=== PATIENT | female | born 1975 | race Caucasian/White ===

== ENCOUNTER → 2018-01-04 | Outpatient (CLI) | payer BC ==
--- NOTE | 2018-01-08 13:07 | RAD ---
DATE: 01/04/2018 EXAM: DIGITAL SCREEN BILAT W/CAD HISTORY: Routine screening COMPARISON: 08/25/2013 This study was interpreted with the benefit of Computerized Aided Detection (CAD). The breast parenchyma is heterogeneously dense, which could reduce sensitivity of mammography. Breast parenchyma level C. FINDINGS: No new or enlarging breast densities are seen. Minimal benign type calcification is present. No suspicious microcalcifications have developed. IMPRESSION: Stable mammograms without evidence of malignancy. BI-RADS CATEGORY: 2 BENIGN FINDING(S) RECOMMENDED FOLLOW-UP: 12M 12 MONTH FOLLOW-UP PQRS compliance statement: Patient information was entered into a reminder system with a target due date for the next mammogram. Mammography is a sensitive method for finding small breast cancers, but it does not detect them all and is not a substitute for careful clinical examination. A negative mammogram does not negate a clinically suspicious finding and should not result in delay in biopsying a clinically suspicious abnormality. "Our facility is accredited by the [employer] Mammography [employer]."
== END | disposition home or self-care (01) ==
LOC: MAMMO 08:23
PROVIDERS: ATTEND Obstetrics & Gynecology
DX: Z12.31 Encounter for screening mammogram for malignant neoplasm of breast (principal)
CPT/HCPCS: 77067

== ENCOUNTER → 2019-03-04 | Outpatient (CLI) | payer BC ==
--- NOTE | 2019-03-07 09:30 | RAD ---
DATE: 03/04/2019 1:05 PM EXAM: MAMMO PHYLLIS SCREENING BILATERAL HISTORY: routine screening evaluation. COMPARISON: Bilateral CC and MLO views of the breasts were performed. Bilateral breast tomosynthesis was performed in CC and MLO projections. This study was interpreted with the benefit of Computerized Aided Detection (CAD). FINDINGS: Breast Density: HETERO The breast parenchyma Is heterogeneously dense, which could reduce sensitivity of mammography. Breast parenchyma level C Benign calcifications are present. The parenchymal pattern appears stable. Subtle left breast macrocalcifications are seen within the superior, lateral left breast for which additional imaging is recommended. No suspicious left breast mass or architectural distortion. No suspicious masses, microcalcifications or architectural distortion is present to suggest malignancy in the right breast. The visualized axillae are unremarkable. IMPRESSION: Left breast indeterminate microcalcifications, findings for which additional imaging is advised. BI-RADS CATEGORY: 0 INCOMPLETE: NEEDS ADDITIONAL IMAGING EVALUATION AND/OR PRIOR MAMMOGRAMS FOR COMPARISON. RECOMMENDED FOLLOW-UP: ADD ADDITIONAL IMAGING. Additional imaging of the left breast is recommended to include spot magnification and tangential views (as these may be skin calcifications) PQRS compliance statement: Patient information was entered into a reminder system with a target due date for the next mammogram. Mammography is a sensitive method for finding small breast cancers, but it does not detect them all and is not a substitute for careful clinical examination. A negative mammogram does not negate a clinically suspicious finding and should not result in delay in biopsying a clinically suspicious abnormality. "Our facility is accredited by the [employer] Mammography [employer]."
== END | disposition home or self-care (01) ==
LOC: MAMMO 12:45
PROVIDERS: ATTEND Obstetrics & Gynecology
DX: Z12.31 Encounter for screening mammogram for malignant neoplasm of breast (principal)
CPT/HCPCS: 77063; 77067

== ENCOUNTER → 2019-03-17 | Outpatient (CLI) | payer BC ==
--- NOTE | 2019-03-17 16:01 | RAD ---
DATE: 03/17/2019 EXAM: DIGITAL DIAGNOSTIC LT HISTORY: Abnormal mammogram COMPARISON: 01/04/2018 and 03/04/2019 mammographic exams This study was interpreted with the benefit of Computerized Aided Detection (CAD). Breast Density: HETERO The breast parenchyma is heterogenously dense, which could reduce sensitivity of mammography. Breast parenchyma level C. FINDINGS: Spot magnification imaging of the left upper breast in the MLO and mediolateral oblique projections were provided. Loosely clustered calcifications are present. No suspicious cluster of calcifications evident. No suspicious interval change compared to the prior exams. IMPRESSION: Benign findings. BI-RADS CATEGORY: 1 NEGATIVE RECOMMENDED FOLLOW-UP: 12M 12 MONTH FOLLOW-UP PQRS compliance statement: Patient information was entered into a reminder system with a target due date in one year for the next mammogram. Mammography is a sensitive method for finding small breast cancers, but it does not detect them all and is not a substitute for careful clinical examination. A negative mammogram does not negate a clinically suspicious finding and should not result in delay in biopsying a clinically suspicious abnormality. "Our facility is accredited by the [employer] Mammography [employer]."
== END | disposition home or self-care (01) ==
LOC: MAMMO 14:46
PROVIDERS: ATTEND Obstetrics & Gynecology
DX: R92.1 Mammographic calcification found on diagnostic imaging of breast (principal)
CPT/HCPCS: 77065

== ENCOUNTER → 2020-03-23 | Outpatient (CLI) | payer BC ==
--- NOTE | 2020-03-23 15:20 | RAD ---
DATE: 03/23/2020 2:10 PM EXAM: MAMMO PHYLLIS SCREENING BILATERAL HISTORY: Screening COMPARISON: 03/04/2019, 01/04/2018. Bilateral CC and MLO views of the breasts were performed. Bilateral breast tomosynthesis was performed in CC and MLO projections. This study was interpreted with the benefit of Computerized Aided Detection (CAD). FINDINGS: Breast Density: HETERO The breast parenchyma Is heterogeneously dense, which could reduce sensitivity of mammography. Breast parenchyma level C Negative left mammogram. Focal asymmetry medial middle third right breast at the approximate 3:00 position 8 cm from the nipple needs additional imaging with spot compression views, full-field lateral view and probable targeted right breast ultrasound. This is best appreciated on tomographic image 37 of the CC series and image 41 of the MLO series in the right breast. IMPRESSION: Right breast focal asymmetry, findings for which additional imaging is advised. BI-RADS CATEGORY: 0 INCOMPLETE: NEEDS ADDITIONAL IMAGING EVALUATION AND/OR PRIOR MAMMOGRAMS FOR COMPARISON. RECOMMENDED FOLLOW-UP: ADD ADDITIONAL IMAGING Additional views are recommended as described. PQRS compliance statement: Patient information was entered into a reminder system with a target due date for the next mammogram. Mammography is a sensitive method for finding small breast cancers, but it does not detect them all and is not a substitute for careful clinical examination. A negative mammogram does not negate a clinically suspicious finding and should not result in delay in biopsying a clinically suspicious abnormality. "Our facility is accredited by the [employer] Mammography [employer]."
== END | disposition home or self-care (01) ==
LOC: MAMMO 14:10
PROVIDERS: ATTEND Obstetrics & Gynecology
DX: Z12.31 Encounter for screening mammogram for malignant neoplasm of breast (principal)
CPT/HCPCS: 77063; 77067

== ENCOUNTER → 2020-04-05 | Outpatient (CLI) | payer BC ==
--- NOTE | 2020-04-05 17:50 | RAD ---
DATE: 04/05/2020 1:13 PM EXAM: DIGITAL DIAGNOSTIC RT, BREAST RIGHT HISTORY: Screening recall for right breast asymmetry COMPARISON: 03/23/2020 and 03/04/2019 screening mammograms TECHNIQUE: Spot compression views of the right breast in the CC and MLO projections as well as a full-field right ML view were obtained. This study was interpreted with the benefit of Computerized Aided Detection (CAD). Targeted ultrasound of the upper inner quadrant right breast was also pursued. FINDINGS: Breast Density: HETERO The breast parenchyma Is heterogeneously dense, which could reduce sensitivity of mammography. Breast parenchyma level C The questioned asymmetry changed configuration in a pattern suggestive of possible overlap of fibroglandular tissue. Targeted ultrasound of the upper inner quadrant right breast did not show a sonographic correlate to the area of mammographic interest. Findings currently favor probably benign island of fibroglandular tissue. IMPRESSION: Probably benign island of tissue in the upper inner right breast. BI-RADS CATEGORY: 3 PROBABLY BENIGN FINDING(S)-SHORT INTERVAL FOLLOW-UP SUGGESTED RECOMMENDED FOLLOW-UP: 6M 6 MONTH FOLLOW-UP six-month follow-up right mammogram with possible targeted right breast ultrasound recommended. PQRS compliance statement: Patient information was entered into a reminder system with a target due date for the next mammogram. Mammography is a sensitive method for finding small breast cancers, but it does not detect them all and is not a substitute for careful clinical examination. A negative mammogram does not negate a clinically suspicious finding and should not result in delay in biopsying a clinically suspicious abnormality. "Our facility is accredited by the [employer] Mammography [employer]."
== END | disposition home or self-care (01) ==
LOC: MAMMO 13:02
PROVIDERS: ATTEND Obstetrics & Gynecology
DX: R92.8 Other abnormal and inconclusive findings on diagnostic imaging of breast (principal)
CPT/HCPCS: 76641; 77065

== ENCOUNTER → 2020-09-29 | Outpatient (CLI) | payer BC ==
--- NOTE | 2020-09-29 13:15 | RAD ---
EXAM: Right breast diagnostic mammogram with tomosynthesis. HISTORY: 45-year-old female presents for follow-up evaluation of asymmetry within the right breast de monstrated on a mammogram dated 04/05/2020. TECHNIQUE: Full-field digital craniocaudal and mediolateral oblique 2D and 3D tomosynthesis images of the right breast are obtained for evaluation. Computer aided detection was applied. COMPARISON: 04/05/2020 and 03/17/2019 BREAST PARENCHYMAL DENSITY: Level C - Heterogeneously dense. FINDINGS: There is no new suspicious mass, microcalcification or region of architectural distortion. There are stable areas of benign asymmetry within the right breast. There are few punctate benign barney cifications. IMPRESSION: BI-RADS Category 2: Benign finding(s). RECOMMENDATION: The patient will be due for bilateral mammography in 6 months according to a previous ly established bilateral mammography interval. If your mammogram demonstrates that you have dense breast tissue, which could hide abnormalities, and if you have other risk factors for breast cancer that have been identified, you might benefit from s upplemental screening tests that may be suggested by your ordering physician. Dense breast tissue, i n and of itself, is a relatively common condition. This information is not provided to cause undue c oncern, but rather to raise your awareness and to promote discussion with your physician regarding th e presence of other risk factors, in addition to dense breast tissue. A report of your mammography re sults will be sent to you and your physician. You should contact your physician if you have any ques tions or concerns regarding this report. Mammography is a sensitive method for finding small breast cancers, but it does not detect them all a nd is not a substitute for careful clinical examination. A negative mammogram does not negate a clin ically suspicious finding and should not result in delay in biopsying a clinically suspicious abnorma lity. PQRS compliance statement - Patient information was entered into a reminder system with a target due date for the next mammogram. "Our facility is accredited by the [employer]amm[employer]." Electronically signed by: Maddi Mcfarland MD (09/29/2020 1:13 PM) [id number]
== END ==
LOC: MAMMO 12:45
PROVIDERS: ATTEND Obstetrics & Gynecology
DX: N64.89 Other specified disorders of breast (principal); R92.1 Mammographic calcification found on diagnostic imaging of breast
CPT/HCPCS: 77065; G0279; 77061

== ENCOUNTER → 2021-05-26 | Outpatient (CLI) | payer BC ==
--- NOTE | 2021-05-26 11:25 | RAD ---
DATE: 05/26/2021 EXAM: MG DIGITAL BILAT DIAGNOSTIC MAMMO WITH PHYLLIS HISTORY: Annual mammogram and six-month follow-up of probably benign islands of fibroglandular tissue in the right breast. COMPARISON: 09/29/2020, 04/05/2020, 03/23/2020, and 01/04/2018 This study was interpreted with the benefit of Computerized Aided Detection (CAD). Breast Density: HETERO The breast parenchyma is heterogenously dense, which could reduce sensitivity of mammography. Breast parenchyma level C. FINDINGS: No suspicious mass, complication, or architectural distortion. IMPRESSION: No evidence of malignancy. BI-RADS CATEGORY: 2 BENIGN FINDING(S) RECOMMENDED FOLLOW-UP: 12M 12 MONTH FOLLOW-UP PQRS compliance statement: Patient information was entered into a reminder system with a target due d ate for the next mammogram. Mammography is a sensitive method for finding small breast cancers, but it does not detect them all a nd is not a substitute for careful clinical examination. A negative mammogram does not negate a clin ically suspicious finding and should not result in delay in biopsying a clinically suspicious abnorma lity. "Our facility is accredited by the [employer] Mammography [employer]." Electronically signed by: Lucia Horvath MD (05/26/2021 11:22 AM) [id number]
== END ==
LOC: MAMMO 09:16
PROVIDERS: ATTEND Nurse Practitioner Women's Health
DX: R92.2 Inconclusive mammogram (principal)
CPT/HCPCS: 77066; G0279; 77062